=== PATIENT | female | born 1930 | race Caucasian/White ===

== ENCOUNTER 2017-07-15 13:53 | Inpatient (IN) | payer MEDICARE, MEDICAID ==
[~2017-07-15] VITALS: Ht 157.5 cm; Wt 50.3 kg
[~2017-07-15 13:53] MED LIST: AMLO-512 PO; BUME1TAB17 PO; HYDR-2924 PO; LABE100 PO; LORA0.5T2 PO; MEMA5 PO; METF500T4 PO; OMEP20TA25 PO; SIMV40TA5 PO; VALS320T2 PO
[2017-07-15 16:38] LABS: BASOPHILS # (AUTO) 0.04 K/uL (0.00-0.20); BASOPHILS % (AUTO) 0.2 % (0.0-2.0); EOSINOPHILS % (AUTO) 0 % (1.0-6.0); HEMOGLOBIN 8.6 g/dL (12.0-16.0); LYMPHOCYTES # (AUTO) 0.7 K/uL (1.0-4.8); LYMPHOCYTES % (AUTO) 3.8 % (22.0-44.0); MEAN CORPUSCULAR HEMOGLOBIN 26.5 pg (26.0-34.0); MEAN CORPUSCULAR HGB CONC 33.1 G/dL (31.0-37.0); MEAN CORPUSCULAR VOLUME 80 fL (80-100); MONOCYTES # (AUTO) 1.2 K/uL (0.1-1.0); MONOCYTES % (AUTO) 6.7 % (2.0-9.0); NEUTROPHILS # (AUTO) 15.3 K/uL (1.8-7.7); PLATELET COUNT (AUTO) 202 K/uL (150-450); RED BLOOD CELL COUNT(AUTO) 3.25 MIL/uL (4.00-5.20); RED CELL DISTRIBUTION WIDTH 15.2 % (11.5-14.5)
[2017-07-15 16:43] LABS: NEUTROPHILS % (AUTO) 89.3 % (40.0-70.0)
[2017-07-15 16:47] LABS: CREATININE 1.54 mg/dL (0.60-1.30); POTASSIUM 3.8 mmol/L (3.5-5.1)
[2017-07-15 16:48] LABS: CALCIUM, TOTAL 8.7 mg/dL (8.8-10.5)
[2017-07-15 16:55] LABS: ALBUMIN 2.7 g/dL (3.4-5.0); BILIRUBIN,TOTAL 0.6 mg/dL (0.1-1.0); TOTAL PROTEIN, SERUM 7.1 g/dL (6.4-8.2)
[2017-07-15 18:10] LABS: APPEARANCE,URINE CLOUDY (CLEAR); BILIRUBIN,URINE NEGATIVE (NEGATIVE); GLUCOSE, URINE (UA) NEGATIVE (NEGATIVE); KETONES,URINE NEGATIVE (NEGATIVE); LEUKOCYTE ESTERASE ,URINE MODERATE (NEGATIVE); NITRATE,URINE NEGATIVE (NEGATIVE); OCCULT BLOOD,URINE NEGATIVE (NEGATIVE); PH,URINE 5.5 (5.0-8.0); PROTEIN,URINE NEGATIVE (NEGATIVE); UROBILINOGEN,URINE 0.2 mg/dL (<=1.0)
[2017-07-15 18:29] LABS: BACTERIA,URINE Many /HPF (None Seen); RBC,URINE 0-2 /HPF (0-2)
[2017-07-15] MEDS ORDERED: CefTRIAXone 1 GM/DEXTROSE 50 ML IV ONE (18:45)
[2017-07-15] MEDS ORDERED: FUROSEMIDE 40 MG/4 ML VIAL IVP ONE (18:45)
[2017-07-15 19:11] LABS: INFLUENZA TYPE A NEGATIVE FOR TYPE A (NEGATIVE); INFLUENZA TYPE B NEGATIVE FOR TYPE B (NEGATIVE)
[2017-07-16 00:21] VITALS: BP 128/58
[2017-07-16 04:12] VITALS: BP 129/52
[2017-07-16] MEDS: LABETALOL HCL 100 MG TABLET PO SCH ×2 (09:00→23:33)
[2017-07-16] MEDS: BUMETANIDE 1 MG TABLET PO SCH (09:00)
[2017-07-16] MEDS: MEMANTINE HCL 5 MG TABLET PO SCH ×2 (09:00→23:33)
[2017-07-16] MEDS: OMEPRAZOLE 20 MG CAPSULE PO SCH ×3 (09:00→22:44)
[2017-07-16] MEDS: VALSARTAN 160 MG TABLET PO SCH (09:00)
[2017-07-16 09:25] VITALS: BP 132/49
[2017-07-16 11:47] VITALS: BP 145/61
[2017-07-16 17:04] LABS: CHOL/HDL RATIO 2.7 (3.9-5.7); THYROID STIMULATING HORMONE 0.53 uIU/mL (0.36-3.74)
[2017-07-16 17:16] LABS: HEMOGLOBIN A1C 5.6 % (4.5-6.2)
[2017-07-16] MEDS: ASPIRIN 81 MG CHEWABLE TABLET PO SCH (18:41)
[2017-07-16 19:39] VITALS: BP 139/70
[2017-07-16] MEDS ORDERED: SODIUM CHLORIDE 0.9% 100 ML ONE (19:41)
[2017-07-16] MEDS: CefTRIAXone 1 GM/DEXTROSE 50 ML IV SCH (19:44)
[2017-07-16] MEDS ORDERED: IOVERSOL 350 MG/ML 100 ML VIAL ONE (19:54)
[2017-07-16] MEDS ORDERED: SODIUM CHLORIDE 0.9% 250 ML IV ONE (22:03)
[2017-07-16] MEDS: SIMVASTATIN 40 MG TABLET PO SCH ×2 (22:38→22:44)
[2017-07-17] VITALS (7 sets, daily range): BP systolic 132–144; BP diastolic 57–86
[2017-07-17 07:21] LABS: BASOPHILS # (AUTO) 0.01 K/uL (0.00-0.20); BASOPHILS % (AUTO) 0.2 % (0.0-2.0); EOSINOPHILS # (AUTO) 0.11 K/uL (0.00-0.70); EOSINOPHILS % (AUTO) 1.06 % (1.0-6.0); HEMATOCRIT 23.7 % (36-46); HEMOGLOBIN 7.7 g/dL (12.0-16.0); LYMPHOCYTES # (AUTO) 1.2 K/uL (1.0-4.8); MEAN CORPUSCULAR HEMOGLOBIN 25.7 pg (26.0-34.0); MEAN CORPUSCULAR HGB CONC 32.3 G/dL (31.0-37.0); MEAN CORPUSCULAR VOLUME 80 fL (80-100); MONOCYTES % (AUTO) 10.3 % (2.0-9.0); NEUTROPHILS # (AUTO) 7.6 K/uL (1.8-7.7); NEUTROPHILS % (AUTO) 76.5 % (40.0-70.0); PLATELET COUNT (AUTO) 229 K/uL (150-450); RED BLOOD CELL COUNT(AUTO) 2.98 MIL/uL (4.00-5.20); RED CELL DISTRIBUTION WIDTH 15.3 % (11.5-14.5)
[2017-07-17 07:24] LABS: ALBUMIN 2.1 g/dL (3.4-5.0); BILIRUBIN,TOTAL 0.2 mg/dL (0.1-1.0); CALCIUM, TOTAL 8.2 mg/dL (8.8-10.5); CREATININE 1.32 mg/dL (0.60-1.30); MAGNESIUM 2.1 mg/dL (1.80-2.40); POTASSIUM 3.4 mmol/L (3.5-5.1); TOTAL PROTEIN, SERUM 6.1 g/dL (6.4-8.2)
[2017-07-17 09:31] LABS: VITAMIN B12 LEVEL 974 pg/mL (211-911)
[2017-07-17] MEDS ORDERED: POTASSIUM CHLORIDE 20 MEQ ER TABLET PO PRN (09:45)
[2017-07-17] MEDS ORDERED: POTASSIUM CHL 10 MEQ/WATER 50 ML IV PRN (09:45)
[2017-07-17] MEDS: ASPIRIN 81 MG CHEWABLE TABLET PO SCH (10:02)
[2017-07-17] MEDS: VALSARTAN 160 MG TABLET PO SCH (10:02)
[2017-07-17] MEDS: BUMETANIDE 1 MG TABLET PO SCH (10:04)
[2017-07-17] MEDS: MEMANTINE HCL 5 MG TABLET PO SCH ×2 (10:04→21:19)
[2017-07-17] MEDS: LABETALOL HCL 100 MG TABLET PO SCH ×2 (10:04→21:19)
[2017-07-17 10:52] LABS: FOLATE SERUM > 24.0 ng/mL (5.4-)
[2017-07-17] MEDS: CefTRIAXone 1 GM/DEXTROSE 50 ML IV SCH (17:16)
[2017-07-17] MEDS: OMEPRAZOLE 20 MG CAPSULE PO SCH (21:19)
[2017-07-18] VITALS: BP 127/58
[2017-07-18 04:55] VITALS: BP 140/55
[2017-07-18 07:46] VITALS: BP 133/56
[2017-07-18 09:14] VITALS: BP 132/76
[2017-07-18] MEDS: ASPIRIN 81 MG CHEWABLE TABLET PO SCH (09:23)
[2017-07-18] MEDS: BUMETANIDE 1 MG TABLET PO SCH (09:23)
[2017-07-18] MEDS: MEMANTINE HCL 5 MG TABLET PO SCH (09:26)
[2017-07-18] MEDS: OMEPRAZOLE 20 MG CAPSULE PO SCH (09:27)
[2017-07-18] MEDS: LABETALOL HCL 100 MG TABLET PO SCH (09:27)
[2017-07-18] MEDS: VALSARTAN 160 MG TABLET PO SCH (09:33)
[2017-07-18 11:25] VITALS: BP 133/62
[2017-07-18] MEDS ORDERED: CEFX1I IM (13:27)
== END 2017-07-18 14:10 | DRG 871 ==
LOC: EMS 14:05 → ICUN 20:34 → AHU 22:22 → 5N 07-16 06:00 → 5S 07-16 10:40
PROVIDERS: ADMIT Family Medicine; ATTEND Family Medicine
DX: A41.9 Sepsis, unspecified organism (principal); G93.41 Metabolic encephalopathy; I63.9 Cerebral infarction, unspecified; I13.0 Hypertensive heart and chronic kidney disease with heart failure and stage 1 through stage 4 chronic kidney disease, or unspecified chronic kidney disease; I42.9 Cardiomyopathy, unspecified; N39.0 Urinary tract infection, site not specified; I50.9 Heart failure, unspecified; E11.22 Type 2 diabetes mellitus with diabetic chronic kidney disease; F03.90 Unspecified dementia, unspecified severity, without behavioral disturbance, psychotic disturbance, mood disturbance, and anxiety; K21.9 Gastro-esophageal reflux disease without esophagitis; E78.5 Hyperlipidemia, unspecified; N18.9 Chronic kidney disease, unspecified; I65.22 Occlusion and stenosis of left carotid artery; E78.00 Pure hypercholesterolemia, unspecified; G40.909 Epilepsy, unspecified, not intractable, without status epilepticus; Z86.73 Personal history of transient ischemic attack (TIA), and cerebral infarction without residual deficits; Z95.810 Presence of automatic (implantable) cardiac defibrillator; Z88.2 Allergy status to sulfonamides; Z88.8 Allergy status to other drugs, medicaments and biological substances; Z91.011 Allergy to milk products
CPT/HCPCS: 51702; 70450; 70496; 72040; 82607; 82746; 83036; 83605; 83735; 84132; 84443; 87040; 87086; 87804; 92507; 92523; 93005; 93306; 93880; 96365; 96366; 96375; 97112; 97163; 97167; 97530; 97535; 99291; J0696; J1940; J7050

== ENCOUNTER 2017-07-18 14:30 | Inpatient (IN) | payer MEDICARE, MEDICAID ==
[~2017-07-18] VITALS: Ht 157.5 cm; Wt 48.5 kg
[~2017-07-18 14:30] MED LIST changes: -AMLO-512 PO; +CEFX1I IM; -HYDR-2924 PO; -METF500T4 PO
[2017-07-18 15:00] VITALS: BP 147/65
[2017-07-18 15:10] VITALS: BP 147/65
[2017-07-18] MEDS ORDERED: ACETAMINOPHEN 325 MG TABLET PO PRN (15:45)
[2017-07-18] MEDS ORDERED: DOCUSATE SODIUM 283 MG/5 ML MINI-ENEMA PR PRN (15:45)
[2017-07-18] MEDS ORDERED: CefTRIAXone 1 GM/DEXTROSE 50 ML IV SCH (18:00)
[2017-07-18 18:23] LABS: APPEARANCE,URINE CLEAR (CLEAR); BILIRUBIN,URINE NEGATIVE (NEGATIVE); GLUCOSE, URINE (UA) NEGATIVE (NEGATIVE); KETONES,URINE NEGATIVE (NEGATIVE); LEUKOCYTE ESTERASE ,URINE TRACE (NEGATIVE); NITRATE,URINE NEGATIVE (NEGATIVE); OCCULT BLOOD,URINE NEGATIVE (NEGATIVE); PROTEIN,URINE NEGATIVE (NEGATIVE); UROBILINOGEN,URINE 0.2 mg/dL (<=1.0)
[2017-07-18 18:28] LABS: BACTERIA,URINE None Seen /HPF (None Seen); RBC,URINE None Seen /HPF (0-2); WBC,URINE 0-2 /HPF (0-5)
[2017-07-18 18:29] LABS: SQUAMOUS EPITHELIAL CELL,UR Few /LPF (None Seen)
[2017-07-18] MEDS: HEPARIN SODIUM,PORCINE 5,000 UNITS/ML VIAL SQ SCH (20:11)
[2017-07-18] MEDS: SIMVASTATIN 40 MG TABLET PO SCH (20:11)
[2017-07-18] MEDS: OMEPRAZOLE 20 MG CAPSULE PO SCH (20:11)
[2017-07-18] MEDS: MEMANTINE HCL 5 MG TABLET PO SCH (20:11)
[2017-07-18] MEDS: DOCUSATE SODIUM 100 MG CAPSULE PO SCH (20:12)
[2017-07-18] MEDS: SENNA 187 MG TABLET PO SCH (20:12)
[2017-07-18 20:13] VITALS: BP 159/74
[2017-07-18] MEDS: LABETALOL HCL 100 MG TABLET PO SCH (20:14)
[2017-07-19 02:30] VITALS: BP 149/61
[2017-07-19 07:20] LABS: BASOPHILS # (AUTO) 0.03 K/uL (0.00-0.20); BASOPHILS % (AUTO) 0.3 % (0.0-2.0); EOSINOPHILS # (AUTO) 0.21 K/uL (0.00-0.70); EOSINOPHILS % (AUTO) 2.12 % (1.0-6.0); HEMATOCRIT 22.3 % (36-46); HEMOGLOBIN 7.2 g/dL (12.0-16.0); LYMPHOCYTES # (AUTO) 1.3 K/uL (1.0-4.8); LYMPHOCYTES % (AUTO) 13.5 % (22.0-44.0); MEAN CORPUSCULAR HGB CONC 32.1 G/dL (31.0-37.0); MEAN CORPUSCULAR VOLUME 81 fL (80-100); MONOCYTES # (AUTO) 0.8 K/uL (0.1-1.0); MONOCYTES % (AUTO) 8.1 % (2.0-9.0); NEUTROPHILS # (AUTO) 7.5 K/uL (1.8-7.7); NEUTROPHILS % (AUTO) 76.1 % (40.0-70.0); PLATELET COUNT (AUTO) 258 K/uL (150-450); RED BLOOD CELL COUNT(AUTO) 2.76 MIL/uL (4.00-5.20); RED CELL DISTRIBUTION WIDTH 15.6 % (11.5-14.5)
[2017-07-19 07:26] VITALS: BP 149/75
[2017-07-19 07:47] LABS: ALBUMIN 2.2 g/dL (3.4-5.0); BILIRUBIN,TOTAL 0.3 mg/dL (0.1-1.0); CALCIUM, TOTAL 8.5 mg/dL (8.8-10.5); CREATININE 1.22 mg/dL (0.60-1.30); POTASSIUM 3.9 mmol/L (3.5-5.1); TOTAL PROTEIN, SERUM 6.3 g/dL (6.4-8.2)
[2017-07-19] MEDS: HEPARIN SODIUM,PORCINE 5,000 UNITS/ML VIAL SQ SCH ×2 (08:26→09:00)
[2017-07-19] MEDS: VALSARTAN 160 MG TABLET PO SCH (08:26)
[2017-07-19] MEDS: MEMANTINE HCL 5 MG TABLET PO SCH ×2 (08:26→20:31)
[2017-07-19] MEDS: DOCUSATE SODIUM 100 MG CAPSULE PO SCH ×2 (08:26→20:32)
[2017-07-19] MEDS: ASPIRIN 81 MG EC TABLET PO SCH ×2 (08:27→09:16)
[2017-07-19] MEDS: OMEPRAZOLE 20 MG CAPSULE PO SCH ×2 (08:27→20:32)
[2017-07-19] MEDS: 0.9% SODIUM CHLORIDE 10 ML SYRINGE IVP SCH ×2 (08:29→16:31)
[2017-07-19] MEDS: BUMETANIDE 1 MG TABLET PO SCH (08:29)
[2017-07-19] MEDS: LABETALOL HCL 100 MG TABLET PO SCH ×2 (08:32→20:32)
[2017-07-19 12:51] VITALS: BP 132/54
[2017-07-19 15:22] VITALS: BP 137/60
[2017-07-19 20:28] VITALS: BP 141/58
[2017-07-19] MEDS: ENOXAPARIN SODIUM 60 MG/0.6 ML PF SYRINGE SQ SCH (20:31)
[2017-07-19] MEDS: SENNA 187 MG TABLET PO SCH (20:32)
[2017-07-19] MEDS: SIMVASTATIN 40 MG TABLET PO SCH (20:32)
[2017-07-20 00:02] VITALS: BP 133/61
[2017-07-20] MEDS: 0.9% SODIUM CHLORIDE 10 ML SYRINGE IVP SCH ×3 (00:08→15:42)
[2017-07-20 07:30] LABS: BASOPHILS # (AUTO) 0.03 K/uL (0.00-0.20); BASOPHILS % (AUTO) 0.3 % (0.0-2.0); EOSINOPHILS # (AUTO) 0.25 K/uL (0.00-0.70); EOSINOPHILS % (AUTO) 2.62 % (1.0-6.0); HEMATOCRIT 22.4 % (36-46); HEMOGLOBIN 7.2 g/dL (12.0-16.0); LYMPHOCYTES # (AUTO) 1.7 K/uL (1.0-4.8); LYMPHOCYTES % (AUTO) 17.3 % (22.0-44.0); MEAN CORPUSCULAR HEMOGLOBIN 26.1 pg (26.0-34.0); MEAN CORPUSCULAR HGB CONC 32.4 G/dL (31.0-37.0); MEAN CORPUSCULAR VOLUME 80 fL (80-100); MONOCYTES # (AUTO) 0.8 K/uL (0.1-1.0); NEUTROPHILS # (AUTO) 6.9 K/uL (1.8-7.7); NEUTROPHILS % (AUTO) 71.8 % (40.0-70.0); PLATELET COUNT (AUTO) 268 K/uL (150-450); RED BLOOD CELL COUNT(AUTO) 2.78 MIL/uL (4.00-5.20); RED CELL DISTRIBUTION WIDTH 15.3 % (11.5-14.5)
[2017-07-20 08:03] VITALS: BP 131/61
[2017-07-20] MEDS: ASPIRIN 81 MG EC TABLET PO SCH (08:05)
[2017-07-20] MEDS: LABETALOL HCL 100 MG TABLET PO SCH ×2 (08:05→21:22)
[2017-07-20] MEDS: BUMETANIDE 1 MG TABLET PO SCH (08:05)
[2017-07-20] MEDS: OMEPRAZOLE 20 MG CAPSULE PO SCH ×2 (08:05→21:22)
[2017-07-20] MEDS: DOCUSATE SODIUM 250 MG CAPSULE PO SCH ×2 (08:05→21:00)
[2017-07-20] MEDS: ENOXAPARIN SODIUM 60 MG/0.6 ML PF SYRINGE SQ SCH ×2 (08:06→21:23)
[2017-07-20] MEDS: MEMANTINE HCL 5 MG TABLET PO SCH ×2 (08:06→21:22)
[2017-07-20] MEDS: VALSARTAN 160 MG TABLET PO SCH (08:06)
[2017-07-20 08:25] LABS: % IRON SATURATION 8.1 % (22-44)
[2017-07-20 15:00] VITALS: BP 134/52
[2017-07-20] MEDS: SENNA 187 MG TABLET PO SCH (21:00)
[2017-07-20] MEDS: SIMVASTATIN 40 MG TABLET PO SCH (21:22)
[2017-07-20 21:23] VITALS: BP 141/67
[2017-07-21] MEDS: 0.9% SODIUM CHLORIDE 10 ML SYRINGE IVP SCH ×4 (00:21→23:28)
[2017-07-21 00:32] VITALS: BP 131/57
[2017-07-21 07:22] VITALS: BP 154/61
[2017-07-21 07:28] LABS: BASOPHILS % (AUTO) 0.3 % (0.0-2.0); EOSINOPHILS % (AUTO) 2.5 % (1.0-6.0); HEMATOCRIT 21.9 % (36-46); HEMOGLOBIN 7.2 g/dL (12.0-16.0); LYMPHOCYTES # (AUTO) 1.6 K/uL (1.0-4.8); LYMPHOCYTES % (AUTO) 15.1 % (22.0-44.0); MEAN CORPUSCULAR HGB CONC 32.8 G/dL (31.0-37.0); MEAN CORPUSCULAR VOLUME 79 fL (80-100); MONOCYTES # (AUTO) 0.8 K/uL (0.1-1.0); NEUTROPHILS # (AUTO) 8.1 K/uL (1.8-7.7); NEUTROPHILS % (AUTO) 75.1 % (40.0-70.0); PLATELET COUNT (AUTO) 301 K/uL (150-450); RED BLOOD CELL COUNT(AUTO) 2.77 MIL/uL (4.00-5.20); RED CELL DISTRIBUTION WIDTH 15.4 % (11.5-14.5)
[2017-07-21 07:40] LABS: CALCIUM, TOTAL 8.3 mg/dL (8.8-10.5); CREATININE 1.31 mg/dL (0.60-1.30); POTASSIUM 4.1 mmol/L (3.5-5.1)
[2017-07-21] MEDS: DOCUSATE SODIUM 250 MG CAPSULE PO SCH ×2 (09:46→20:20)
[2017-07-21] MEDS: LABETALOL HCL 100 MG TABLET PO SCH ×2 (09:47→20:20)
[2017-07-21] MEDS: BUMETANIDE 1 MG TABLET PO SCH (09:47)
[2017-07-21] MEDS: OMEPRAZOLE 20 MG CAPSULE PO SCH ×2 (09:47→20:20)
[2017-07-21] MEDS: VALSARTAN 160 MG TABLET PO SCH (09:47)
[2017-07-21] MEDS: ENOXAPARIN SODIUM 60 MG/0.6 ML PF SYRINGE SQ SCH ×2 (09:48→20:20)
[2017-07-21] MEDS: FERROUS SULFATE 325 MG EC TABLET PO SCH ×3 (09:48→17:08)
[2017-07-21] MEDS: MEMANTINE HCL 5 MG TABLET PO SCH ×2 (09:50→20:20)
[2017-07-21] MEDS: ASPIRIN 81 MG EC TABLET PO SCH (09:50)
[2017-07-21 15:34] VITALS: BP 126/54
[2017-07-21 19:51] VITALS: BP 129/52
[2017-07-21] MEDS: SENNA 187 MG TABLET PO SCH (20:20)
[2017-07-21] MEDS: SIMVASTATIN 40 MG TABLET PO SCH (20:21)
[2017-07-21 23:37] VITALS: BP 141/54
[2017-07-22] MEDS: 0.9% SODIUM CHLORIDE 10 ML SYRINGE IVP SCH ×2 (07:15→16:58)
[2017-07-22] MEDS: DOCUSATE SODIUM 250 MG CAPSULE PO SCH ×2 (07:15→21:26)
[2017-07-22] MEDS: FERROUS SULFATE 325 MG EC TABLET PO SCH ×3 (07:15→17:01)
[2017-07-22] MEDS: MEMANTINE HCL 5 MG TABLET PO SCH ×2 (07:16→21:26)
[2017-07-22] MEDS: VALSARTAN 160 MG TABLET PO SCH (07:16)
[2017-07-22] MEDS: BUMETANIDE 1 MG TABLET PO SCH (07:17)
[2017-07-22] MEDS: LABETALOL HCL 100 MG TABLET PO SCH ×2 (07:18→21:26)
[2017-07-22] MEDS: ASPIRIN 81 MG EC TABLET PO SCH (07:18)
[2017-07-22] MEDS: OMEPRAZOLE 20 MG CAPSULE PO SCH ×2 (07:18→21:26)
[2017-07-22] MEDS: ENOXAPARIN SODIUM 60 MG/0.6 ML PF SYRINGE SQ SCH ×2 (07:19→21:24)
[2017-07-22 07:20] VITALS: BP 145/68
[2017-07-22 15:18] VITALS: BP 113/55
[2017-07-22 21:20] VITALS: BP 135/61
[2017-07-22] MEDS: SIMVASTATIN 40 MG TABLET PO SCH (21:25)
[2017-07-22] MEDS: SENNA 187 MG TABLET PO SCH (21:26)
[2017-07-23] VITALS (24 sets, daily range): BP systolic 118–144; BP diastolic 45–90
[2017-07-23] MEDS ORDERED: ASPI81 PO (03:10)
[2017-07-23] MEDS ORDERED: FERR-89 PO (03:10)
[2017-07-23] MEDS ORDERED: OMEP20 PO (03:10)
[2017-07-23] MEDS ORDERED: MULT-248 PO (03:10)
[2017-07-23 07:20] LABS: BASOPHILS # (AUTO) 0.02 K/uL (0.00-0.20); BASOPHILS % (AUTO) 0.3 % (0.0-2.0); EOSINOPHILS # (AUTO) 0.22 K/uL (0.00-0.70); EOSINOPHILS % (AUTO) 2.59 % (1.0-6.0); LYMPHOCYTES # (AUTO) 1.5 K/uL (1.0-4.8); LYMPHOCYTES % (AUTO) 17.1 % (22.0-44.0); MEAN CORPUSCULAR HEMOGLOBIN 25.9 pg (26.0-34.0); MEAN CORPUSCULAR HGB CONC 32.4 G/dL (31.0-37.0); MEAN CORPUSCULAR VOLUME 80 fL (80-100); MONOCYTES # (AUTO) 0.5 K/uL (0.1-1.0); MONOCYTES % (AUTO) 6.2 % (2.0-9.0); NEUTROPHILS # (AUTO) 6.3 K/uL (1.8-7.7); NEUTROPHILS % (AUTO) 73.9 % (40.0-70.0); PLATELET COUNT (AUTO) 308 K/uL (150-450); RED BLOOD CELL COUNT(AUTO) 2.53 MIL/uL (4.00-5.20); RED CELL DISTRIBUTION WIDTH 15.4 % (11.5-14.5)
[2017-07-23 07:38] LABS: HEMOGLOBIN 6.6 g/dL (12.0-16.0)
[2017-07-23 07:39] LABS: HEMATOCRIT 20.3 % (36-46)
[2017-07-23 07:40] LABS: CALCIUM, TOTAL 8.3 mg/dL (8.8-10.5); CREATININE 1.45 mg/dL (0.60-1.30); POTASSIUM 4.1 mmol/L (3.5-5.1)
[2017-07-23] MEDS ORDERED: ACETAMINOPHEN 325 MG TABLET PO ONE (07:45)
[2017-07-23] MEDS ORDERED: DiphenhydrAMINE HCL 50 MG CAPSULE PO ONE (08:30)
[2017-07-23] MEDS: BUMETANIDE 1 MG TABLET PO SCH (08:31)
[2017-07-23] MEDS: OMEPRAZOLE 20 MG CAPSULE PO SCH ×2 (08:31→20:41)
[2017-07-23] MEDS: LABETALOL HCL 100 MG TABLET PO SCH ×3 (08:31→21:37)
[2017-07-23] MEDS: VALSARTAN 160 MG TABLET PO SCH (08:33)
[2017-07-23] MEDS: DOCUSATE SODIUM 250 MG CAPSULE PO SCH ×2 (08:34→20:42)
[2017-07-23] MEDS: MEMANTINE HCL 5 MG TABLET PO SCH ×2 (08:34→20:42)
[2017-07-23] MEDS: FERROUS SULFATE 325 MG EC TABLET PO SCH ×3 (08:35→16:41)
[2017-07-23] MEDS: ASPIRIN 81 MG EC TABLET PO SCH (08:36)
[2017-07-23] MEDS: ENOXAPARIN SODIUM 60 MG/0.6 ML PF SYRINGE SQ SCH ×2 (08:36→21:37)
[2017-07-23 08:44] LABS: HEMATOCRIT 21.1 % (36-46)
[2017-07-23 08:48] LABS: HEMOGLOBIN 6.9 g/dL (12.0-16.0)
[2017-07-23] MEDS ORDERED: FUROSEMIDE 20 MG/2 ML VIAL IVP ONE (15:45)
[2017-07-23] MEDS ORDERED: SODIUM CHLORIDE 0.9% 100 ML ONE (17:37)
[2017-07-23] MEDS: SENNA 187 MG TABLET PO SCH (20:42)
[2017-07-23] MEDS: SIMVASTATIN 40 MG TABLET PO SCH (20:42)
[2017-07-24 05:10] VITALS: BP 143/63
[2017-07-24 07:50] VITALS: BP 128/52
[2017-07-24] MEDS: MEMANTINE HCL 5 MG TABLET PO SCH ×2 (07:59→20:28)
[2017-07-24] MEDS: OMEPRAZOLE 20 MG CAPSULE PO SCH ×2 (08:00→20:28)
[2017-07-24] MEDS: LABETALOL HCL 100 MG TABLET PO SCH ×2 (08:00→20:28)
[2017-07-24] MEDS: ENOXAPARIN SODIUM 60 MG/0.6 ML PF SYRINGE SQ SCH (08:00)
[2017-07-24] MEDS: VALSARTAN 160 MG TABLET PO SCH (08:00)
[2017-07-24] MEDS: ASPIRIN 81 MG EC TABLET PO SCH (08:01)
[2017-07-24] MEDS: DOCUSATE SODIUM 250 MG CAPSULE PO SCH ×2 (08:01→20:28)
[2017-07-24] MEDS: BUMETANIDE 1 MG TABLET PO SCH (08:01)
[2017-07-24] MEDS: FERROUS SULFATE 325 MG EC TABLET PO SCH ×3 (08:01→16:22)
[2017-07-24 09:30] LABS: BASOPHILS # (AUTO) 0.02 K/uL (0.00-0.20); BASOPHILS % (AUTO) 0.3 % (0.0-2.0); EOSINOPHILS # (AUTO) 0.19 K/uL (0.00-0.70); EOSINOPHILS % (AUTO) 2.44 % (1.0-6.0); HEMATOCRIT 30.1 % (36-46); LYMPHOCYTES # (AUTO) 1.3 K/uL (1.0-4.8); LYMPHOCYTES % (AUTO) 16.6 % (22.0-44.0); MEAN CORPUSCULAR HEMOGLOBIN 27.7 pg (26.0-34.0); MEAN CORPUSCULAR HGB CONC 33.2 G/dL (31.0-37.0); MEAN CORPUSCULAR VOLUME 83 fL (80-100); MONOCYTES # (AUTO) 0.5 K/uL (0.1-1.0); MONOCYTES % (AUTO) 6.5 % (2.0-9.0); NEUTROPHILS # (AUTO) 5.8 K/uL (1.8-7.7); NEUTROPHILS % (AUTO) 74.1 % (40.0-70.0); PLATELET COUNT (AUTO) 321 K/uL (150-450); RED BLOOD CELL COUNT(AUTO) 3.61 MIL/uL (4.00-5.20); RED CELL DISTRIBUTION WIDTH 16.1 % (11.5-14.5)
[2017-07-24 09:49] LABS: ALBUMIN 2.5 g/dL (3.4-5.0); BILIRUBIN,TOTAL 0.4 mg/dL (0.1-1.0); CALCIUM, TOTAL 8.7 mg/dL (8.8-10.5); CREATININE 1.31 mg/dL (0.60-1.30); POTASSIUM 4.2 mmol/L (3.5-5.1); TOTAL PROTEIN, SERUM 6.5 g/dL (6.4-8.2)
[2017-07-24] MEDS: 0.9% SODIUM CHLORIDE 10 ML SYRINGE IVP SCH ×2 (11:30→16:22)
[2017-07-24 15:10] VITALS: BP 129/60
[2017-07-24 20:26] VITALS: BP 106/77
[2017-07-24] MEDS: SENNA 187 MG TABLET PO SCH (20:28)
[2017-07-24] MEDS: SIMVASTATIN 40 MG TABLET PO SCH (20:28)
[2017-07-25] MEDS: 0.9% SODIUM CHLORIDE 10 ML SYRINGE IVP SCH ×4 (00:28→23:21)
[2017-07-25 00:29] VITALS: BP 125/63
[2017-07-25 06:40] LABS: CALCIUM, TOTAL 8.2 mg/dL (8.8-10.5); CREATININE 1.37 mg/dL (0.60-1.30); MAGNESIUM 2.1 mg/dL (1.80-2.40)
[2017-07-25 06:52] LABS: BASOPHILS % (AUTO) 0.3 % (0.0-2.0); EOSINOPHILS % (AUTO) 2.6 % (1.0-6.0); HEMOGLOBIN 10.3 g/dL (12.0-16.0); LYMPHOCYTES # (AUTO) 1.4 K/uL (1.0-4.8); LYMPHOCYTES % (AUTO) 20.3 % (22.0-44.0); MEAN CORPUSCULAR HEMOGLOBIN 27.6 pg (26.0-34.0); MEAN CORPUSCULAR HGB CONC 33.3 G/dL (31.0-37.0); MEAN CORPUSCULAR VOLUME 83 fL (80-100); MONOCYTES # (AUTO) 0.5 K/uL (0.1-1.0); MONOCYTES % (AUTO) 7.8 % (2.0-9.0); NEUTROPHILS # (AUTO) 4.8 K/uL (1.8-7.7); PLATELET COUNT (AUTO) 346 K/uL (150-450); RED BLOOD CELL COUNT(AUTO) 3.73 MIL/uL (4.00-5.20)
[2017-07-25 07:10] VITALS: BP 127/84
[2017-07-25] MEDS: ASPIRIN 81 MG EC TABLET PO SCH (07:40)
[2017-07-25] MEDS: BUMETANIDE 1 MG TABLET PO SCH (07:40)
[2017-07-25] MEDS: FERROUS SULFATE 325 MG EC TABLET PO SCH ×3 (07:40→16:23)
[2017-07-25] MEDS: DOCUSATE SODIUM 250 MG CAPSULE PO SCH ×2 (07:40→20:00)
[2017-07-25] MEDS: LABETALOL HCL 100 MG TABLET PO SCH ×2 (07:41→20:00)
[2017-07-25] MEDS: OMEPRAZOLE 20 MG CAPSULE PO SCH ×2 (07:41→20:00)
[2017-07-25] MEDS: VALSARTAN 160 MG TABLET PO SCH (07:41)
[2017-07-25] MEDS: MEMANTINE HCL 5 MG TABLET PO SCH ×2 (07:42→20:00)
[2017-07-25] MEDS: ACETAMINOPHEN 325 MG TABLET PO PRN ×2 (14:01→20:00)
[2017-07-25 15:01] VITALS: BP 114/61
[2017-07-25 19:57] VITALS: BP 121/50
[2017-07-25] MEDS: SENNA 187 MG TABLET PO SCH (20:00)
[2017-07-25] MEDS: SIMVASTATIN 40 MG TABLET PO SCH (20:00)
[2017-07-25 23:14] VITALS: BP 127/52
[2017-07-26 07:28] VITALS: BP 150/72
[2017-07-26] MEDS: FERROUS SULFATE 325 MG EC TABLET PO SCH ×3 (08:13→16:02)
[2017-07-26] MEDS: DOCUSATE SODIUM 250 MG CAPSULE PO SCH ×2 (08:13→21:13)
[2017-07-26] MEDS: MEMANTINE HCL 5 MG TABLET PO SCH ×2 (08:13→21:13)
[2017-07-26] MEDS: ASPIRIN 81 MG EC TABLET PO SCH (08:14)
[2017-07-26] MEDS: OMEPRAZOLE 20 MG CAPSULE PO SCH ×2 (08:14→21:12)
[2017-07-26] MEDS: 0.9% SODIUM CHLORIDE 10 ML SYRINGE IVP SCH ×2 (08:14→16:02)
[2017-07-26] MEDS: VALSARTAN 160 MG TABLET PO SCH (08:14)
[2017-07-26] MEDS: LABETALOL HCL 100 MG TABLET PO SCH ×2 (08:14→21:13)
[2017-07-26] MEDS: BUMETANIDE 1 MG TABLET PO SCH (08:14)
[2017-07-26 15:49] VITALS: BP 138/61
[2017-07-26 21:13] VITALS: BP 134/55
[2017-07-26] MEDS: SIMVASTATIN 40 MG TABLET PO SCH (21:13)
[2017-07-26] MEDS: SENNA 187 MG TABLET PO SCH (21:13)
[2017-07-27 02:00] VITALS: BP 133/62
[2017-07-27 08:00] VITALS: BP 143/54
[2017-07-27] MEDS: BUMETANIDE 1 MG TABLET PO SCH (08:15)
[2017-07-27] MEDS: MEMANTINE HCL 5 MG TABLET PO SCH ×2 (08:15→20:11)
[2017-07-27] MEDS: VALSARTAN 160 MG TABLET PO SCH (08:15)
[2017-07-27] MEDS: FERROUS SULFATE 325 MG EC TABLET PO SCH ×3 (08:15→17:12)
[2017-07-27] MEDS: OMEPRAZOLE 20 MG CAPSULE PO SCH ×2 (08:16→20:10)
[2017-07-27] MEDS: LABETALOL HCL 100 MG TABLET PO SCH ×2 (08:16→20:10)
[2017-07-27] MEDS: ASPIRIN 81 MG EC TABLET PO SCH (08:16)
[2017-07-27] MEDS: DOCUSATE SODIUM 250 MG CAPSULE PO SCH ×2 (08:16→20:10)
[2017-07-27] MEDS ORDERED: MAGNESIUM HYDROXIDE SUSPENSION 30 ML UDCUP PO PRN (15:15)
[2017-07-27 15:29] VITALS: BP 125/52
[2017-07-27] MEDS: POLYETHYLENE GLYCOL 3350 17 GM PACKET PO SCH (17:12)
[2017-07-27 20:08] VITALS: BP 123/64
[2017-07-27] MEDS: SENNA 187 MG TABLET PO SCH (20:10)
[2017-07-27] MEDS: SIMVASTATIN 40 MG TABLET PO SCH (20:11)
[2017-07-27 23:07] VITALS: BP 136/51
[2017-07-28 07:45] VITALS: BP 138/58
[2017-07-28] MEDS: VALSARTAN 160 MG TABLET PO SCH (09:16)
[2017-07-28] MEDS: MEMANTINE HCL 5 MG TABLET PO SCH ×2 (09:16→20:49)
[2017-07-28] MEDS: DOCUSATE SODIUM 250 MG CAPSULE PO SCH ×2 (09:17→20:49)
[2017-07-28] MEDS: ASPIRIN 81 MG EC TABLET PO SCH (09:17)
[2017-07-28] MEDS: FERROUS SULFATE 325 MG EC TABLET PO SCH ×3 (09:17→16:25)
[2017-07-28] MEDS: LABETALOL HCL 100 MG TABLET PO SCH ×2 (09:17→20:49)
[2017-07-28] MEDS: OMEPRAZOLE 20 MG CAPSULE PO SCH ×2 (09:18→20:49)
[2017-07-28] MEDS: BUMETANIDE 1 MG TABLET PO SCH (09:18)
[2017-07-28] MEDS: POLYETHYLENE GLYCOL 3350 17 GM PACKET PO SCH (09:19)
[2017-07-28 15:08] LABS: BASOPHILS # (AUTO) 0.02 K/uL (0.00-0.20); BASOPHILS % (AUTO) 0.3 % (0.0-2.0); EOSINOPHILS % (AUTO) 1.04 % (1.0-6.0); HEMATOCRIT 30.8 % (36-46); HEMOGLOBIN 10.3 g/dL (12.0-16.0); LYMPHOCYTES # (AUTO) 0.9 K/uL (1.0-4.8); LYMPHOCYTES % (AUTO) 9.9 % (22.0-44.0); MEAN CORPUSCULAR HEMOGLOBIN 28.2 pg (26.0-34.0); MEAN CORPUSCULAR HGB CONC 33.3 G/dL (31.0-37.0); MEAN CORPUSCULAR VOLUME 85 fL (80-100); MONOCYTES # (AUTO) 0.5 K/uL (0.1-1.0); MONOCYTES % (AUTO) 5.9 % (2.0-9.0); NEUTROPHILS # (AUTO) 7.6 K/uL (1.8-7.7); PLATELET COUNT (AUTO) 365 K/uL (150-450); RED BLOOD CELL COUNT(AUTO) 3.63 MIL/uL (4.00-5.20); RED CELL DISTRIBUTION WIDTH 17.9 % (11.5-14.5)
[2017-07-28 15:14] LABS: ALBUMIN 2.9 g/dL (3.4-5.0); BILIRUBIN,TOTAL 0.2 mg/dL (0.1-1.0); CALCIUM, TOTAL 8.2 mg/dL (8.8-10.5); CREATININE 1.58 mg/dL (0.60-1.30); POTASSIUM 4.5 mmol/L (3.5-5.1); TOTAL PROTEIN, SERUM 6.9 g/dL (6.4-8.2)
[2017-07-28 15:45] LABS: PLATELET MORPHOLOGY COMMENT NORMAL
[2017-07-28 15:48] LABS: APPEARANCE,URINE CLEAR (CLEAR); BILIRUBIN,URINE NEGATIVE (NEGATIVE); GLUCOSE, URINE (UA) NEGATIVE (NEGATIVE); KETONES,URINE NEGATIVE (NEGATIVE); LEUKOCYTE ESTERASE ,URINE NEGATIVE (NEGATIVE); NITRATE,URINE NEGATIVE (NEGATIVE); OCCULT BLOOD,URINE NEGATIVE (NEGATIVE); PROTEIN,URINE NEGATIVE (NEGATIVE); UROBILINOGEN,URINE 0.2 mg/dL (<=1.0)
[2017-07-28 16:06] VITALS: BP 148/66
[2017-07-28] MEDS: SIMVASTATIN 40 MG TABLET PO SCH (20:49)
[2017-07-28] MEDS: SENNA 187 MG TABLET PO SCH (20:49)
[2017-07-29] VITALS: BP 98/59
[2017-07-29 01:30] VITALS: BP 112/62
[2017-07-29] MEDS: BUMETANIDE 1 MG TABLET PO SCH (07:36)
[2017-07-29] MEDS: VALSARTAN 160 MG TABLET PO SCH (07:37)
[2017-07-29] MEDS: OMEPRAZOLE 20 MG CAPSULE PO SCH ×2 (07:37→20:15)
[2017-07-29] MEDS: DOCUSATE SODIUM 250 MG CAPSULE PO SCH ×2 (07:37→20:16)
[2017-07-29] MEDS: FERROUS SULFATE 325 MG EC TABLET PO SCH ×3 (07:37→17:13)
[2017-07-29] MEDS: ASPIRIN 81 MG EC TABLET PO SCH (07:38)
[2017-07-29] MEDS: MEMANTINE HCL 5 MG TABLET PO SCH ×2 (07:38→20:16)
[2017-07-29] MEDS: LABETALOL HCL 100 MG TABLET PO SCH ×2 (07:38→20:15)
[2017-07-29] MEDS: POLYETHYLENE GLYCOL 3350 17 GM PACKET PO SCH (07:38)
[2017-07-29 07:43] VITALS: BP 121/60
[2017-07-29] MEDS ORDERED: HYDROCORTISONE 1% 30 GM CREAM TP PRN (14:30)
[2017-07-29 16:16] VITALS: BP 107/53
[2017-07-29] MEDS: SIMVASTATIN 40 MG TABLET PO SCH (20:15)
[2017-07-29] MEDS: SENNA 187 MG TABLET PO SCH (20:16)
[2017-07-29 20:17] VITALS: BP 119/56
[2017-07-29 23:03] VITALS: BP 111/54
[2017-07-30] MEDS: FERROUS SULFATE 325 MG EC TABLET PO SCH ×3 (07:28→17:20)
[2017-07-30 07:52] VITALS: BP 154/78
[2017-07-30] MEDS: VALSARTAN 160 MG TABLET PO SCH (08:34)
[2017-07-30] MEDS: OMEPRAZOLE 20 MG CAPSULE PO SCH ×2 (08:34→20:42)
[2017-07-30] MEDS: POLYETHYLENE GLYCOL 3350 17 GM PACKET PO SCH (08:34)
[2017-07-30] MEDS: BUMETANIDE 1 MG TABLET PO SCH (08:35)
[2017-07-30] MEDS: LABETALOL HCL 100 MG TABLET PO SCH ×2 (08:35→20:42)
[2017-07-30] MEDS: ASPIRIN 81 MG EC TABLET PO SCH (08:35)
[2017-07-30] MEDS: DOCUSATE SODIUM 250 MG CAPSULE PO SCH ×2 (08:35→20:42)
[2017-07-30] MEDS: MEMANTINE HCL 5 MG TABLET PO SCH ×2 (08:35→20:42)
[2017-07-30 16:07] VITALS: BP 128/47
[2017-07-30 20:30] VITALS: BP 115/51
[2017-07-30] MEDS: SIMVASTATIN 40 MG TABLET PO SCH (20:42)
[2017-07-30] MEDS: SENNA 187 MG TABLET PO SCH (20:42)
[2017-07-31] VITALS: BP 102/44
[2017-07-31 05:00] VITALS: BP 123/63
[2017-07-31 07:41] VITALS: BP 111/56
[2017-07-31] MEDS: FERROUS SULFATE 325 MG EC TABLET PO SCH ×3 (08:18→16:24)
[2017-07-31] MEDS: BUMETANIDE 1 MG TABLET PO SCH (08:19)
[2017-07-31] MEDS: DOCUSATE SODIUM 250 MG CAPSULE PO SCH ×3 (08:19→20:55)
[2017-07-31] MEDS: ASPIRIN 81 MG EC TABLET PO SCH (08:19)
[2017-07-31] MEDS: LABETALOL HCL 100 MG TABLET PO SCH ×2 (08:19→20:54)
[2017-07-31] MEDS: OMEPRAZOLE 20 MG CAPSULE PO SCH ×2 (08:20→20:55)
[2017-07-31] MEDS: VALSARTAN 160 MG TABLET PO SCH (08:20)
[2017-07-31] MEDS: POLYETHYLENE GLYCOL 3350 17 GM PACKET PO SCH (08:21)
[2017-07-31] MEDS: MEMANTINE HCL 5 MG TABLET PO SCH ×2 (08:22→20:55)
[2017-07-31 10:58] LABS: BASOPHILS % (AUTO) 0.2 % (0.0-2.0); EOSINOPHILS % (AUTO) 2.2 % (1.0-6.0); HEMATOCRIT 29.3 % (36-46); HEMOGLOBIN 9.6 g/dL (12.0-16.0); LYMPHOCYTES # (AUTO) 0.9 K/uL (1.0-4.8); MEAN CORPUSCULAR HEMOGLOBIN 27.9 pg (26.0-34.0); MEAN CORPUSCULAR HGB CONC 32.9 G/dL (31.0-37.0); MEAN CORPUSCULAR VOLUME 85 fL (80-100); MONOCYTES # (AUTO) 0.6 K/uL (0.1-1.0); MONOCYTES % (AUTO) 7.5 % (2.0-9.0); NEUTROPHILS # (AUTO) 6.4 K/uL (1.8-7.7); NEUTROPHILS % (AUTO) 79.1 % (40.0-70.0); PLATELET COUNT (AUTO) 358 K/uL (150-450); RED BLOOD CELL COUNT(AUTO) 3.46 MIL/uL (4.00-5.20); RED CELL DISTRIBUTION WIDTH 19.5 % (11.5-14.5)
[2017-07-31 15:20] VITALS: BP 122/45
[2017-07-31] MEDS ORDERED: PERMETHRIN 1% 60 ML LOTION TP ONE (16:00)
[2017-07-31] MEDS ORDERED: PERMETHRIN 5% 60 GM CREAM TP ONE (19:00)
[2017-07-31 20:41] VITALS: BP 137/42
[2017-07-31] MEDS: HYDROCORTISONE 1% 30 GM CREAM TP SCH (20:54)
[2017-07-31] MEDS: SIMVASTATIN 40 MG TABLET PO SCH (20:54)
[2017-07-31] MEDS: APIXABAN 2.5 MG TABLET PO SCH (20:55)
[2017-07-31] MEDS: SENNA 187 MG TABLET PO SCH (20:55)
[2017-08-01] VITALS: BP 124/49
[2017-08-01] MEDS: HYDROCORTISONE 1% 30 GM CREAM TP SCH (00:36)
[2017-08-01 07:42] VITALS: BP 116/50
[2017-08-01] MEDS: DOCUSATE SODIUM 250 MG CAPSULE PO SCH (08:34)
[2017-08-01] MEDS: VALSARTAN 160 MG TABLET PO SCH (08:34)
[2017-08-01] MEDS: APIXABAN 2.5 MG TABLET PO SCH (08:34)
[2017-08-01] MEDS: BUMETANIDE 1 MG TABLET PO SCH (08:34)
[2017-08-01] MEDS: LABETALOL HCL 100 MG TABLET PO SCH (08:35)
[2017-08-01] MEDS: OMEPRAZOLE 20 MG CAPSULE PO SCH (08:35)
[2017-08-01] MEDS: MEMANTINE HCL 5 MG TABLET PO SCH (08:35)
[2017-08-01] MEDS: ASPIRIN 81 MG EC TABLET PO SCH (08:35)
[2017-08-01] MEDS: POLYETHYLENE GLYCOL 3350 17 GM PACKET PO SCH (08:35)
[2017-08-01] MEDS: FERROUS SULFATE 325 MG EC TABLET PO SCH ×2 (08:38→12:30)
[2017-08-01] MEDS ORDERED: PERMETHRIN 5% 60 GM CREAM TP ONE ×2 (13:13→21:00)
[2017-08-01] MEDS ORDERED: DiphenhydrAMINE HCL 25 MG CAPSULE PO SCH (21:00)
[2017-08-01] MEDS ORDERED: FLUOCINONIDE 0.05% TP SCH (21:00)
[2017-08-07] MEDS ORDERED: PERMETHRIN 5% 60 GM CREAM TP ONE (20:00)
== END 2017-08-01 14:21 | DRG 56 ==
LOC: 2WR 14:30
PROVIDERS: ADMIT Physical Medicine & Rehabilitation; ATTEND Physical Medicine & Rehabilitation
DX: I69.354 Hemiplegia and hemiparesis following cerebral infarction affecting left non-dominant side (principal); I63.9 Cerebral infarction, unspecified; G93.41 Metabolic encephalopathy; I11.0 Hypertensive heart disease with heart failure; I50.9 Heart failure, unspecified; I25.5 Ischemic cardiomyopathy; D50.9 Iron deficiency anemia, unspecified; B86 Scabies; E78.5 Hyperlipidemia, unspecified; F03.90 Unspecified dementia, unspecified severity, without behavioral disturbance, psychotic disturbance, mood disturbance, and anxiety; I44.7 Left bundle-branch block, unspecified; K21.9 Gastro-esophageal reflux disease without esophagitis; L30.8 Other specified dermatitis; I65.29 Occlusion and stenosis of unspecified carotid artery; Z95.810 Presence of automatic (implantable) cardiac defibrillator; Z87.440 Personal history of urinary (tract) infections
CPT/HCPCS: 82271; 82668; 83540; 83550; 83735; 85014; 85018; 85045; 86850; 86900; 86901; 86920; 87081; 92507; 92508; 92523; 92526; 93970; 97112; 97116; 97163; 97166; 97530; 97535; 99366; J0696; J1644; J1650; J1940; J7050; P9016